=== PATIENT | female | born 1950 | race Caucasian/White ===

== ENCOUNTER 2025-01-05 13:44 | Outpatient (CLI) | payer MEDICARE, SELFPAY ==
--- NOTE | ~2025-01-05 | US_ITS ---
EXAMINATION: US retroperitoneal comp DATE: 01/05/2025 14:56 INDICATION: Stage II kidney cancer TECHNIQUE: Multiple ultrasound grayscale images of the kidneys were obtained. COMPARISON: None. FINDINGS: The right kidney measures 8.8 x 5.2 x 5.7 cm. The left kidney measures 11.6 x 5.2 x 7.4 cm. The kidne ys demonstrate normal echogenicity. There is no hydronephrosis in either kidney. No stones identifie d. The bladder is normal with calculated prevoid bladder volume of 144 mm and normal calculated post void bladder volume of 36 mL. IMPRESSION: 1. Normal kidneys without hydronephrosis. Reviewed, dictated and finalized at location A.
== END 2025-01-05 13:45 | disposition home or self-care (01) ==
PROVIDERS: PCP Specialist; Visit Provider Specialist
DX: N18.2 Chronic kidney disease, stage 2 (mild) (principal)
CPT/HCPCS: 76770